=== PATIENT | female | born 2000 | race Caucasian/White ===

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

== ENCOUNTER 2020-10-30 22:56 | Emergency (ER) | payer OTHER ==
[~2020-10-30] VITALS: Ht 165.1 cm; Wt 55.0 kg
[~2020-10-30 22:56] MED LIST: LO LOESTRIN FE1 TAB PO; ZOFRAN 4MG T4 MG/TAB PO
[2020-10-31] MEDS ORDERED: PREDNISONE20 MG PO (00:25)
[2020-10-31 00:55] VITALS: BP 126/89; PULSE 87; TEMP 98.4
== END 2020-10-31 00:44 | disposition home or self-care (01) ==
LOC: COL.ER 22:56
DX: L50.9 Urticaria, unspecified (principal); K21.9 Gastro-esophageal reflux disease without esophagitis
CPT/HCPCS: J7512